=== PATIENT | male | born 1980 | race Caucasian/White ===

== ENCOUNTER 2022-05-29 11:23 | Emergency (ER) | payer SELFPAY ==
[2022-05-29] MEDS ORDERED: Aspirin 81 MG Tab.Chew PO ONE (11:34)
[2022-05-29] MEDS ORDERED: Sodium Chloride 0.9% 2.5 ML Syringe FLUSH PRN (11:34)
[2022-05-29] MEDS ORDERED: Sodium Chloride 0.9% 10 ML Syringe FLUSH PRN (11:34)
[2022-05-29] MEDS ORDERED: Sodium Chloride 0.9% 1,000 ML IV ONE (11:34)
[2022-05-29] MEDS ORDERED: Acetaminophen 325 MG Tab PO ONE (11:35)
[2022-05-29 12:29] LABS: CORONAVIRUS COVID-19 NAA NEGATIVE (NEGATIVE); INFLUENZA A NAA NEGATIVE (NEGATIVE); INFLUENZA B NAA NEGATIVE (NEGATIVE)
[2022-05-29 12:31] LABS: CARBON DIOXIDE,CO2 26.5 mmol/L (21.0-32.0); POTASSIUM,K 3.8 mmol/L (3.5-5.1)
== END 2022-05-29 13:18 | disposition home or self-care (01) ==
LOC: MW.ED 11:23
DX: R07.89 Other chest pain (principal); J32.9 Chronic sinusitis, unspecified; Z20.822 Contact with and (suspected) exposure to COVID-19
CPT/HCPCS: 0240U; 36415; 71045; 80053; 84484; 85025; 87651; 93005; 99285; A9270